=== PATIENT | male | born 1995 | race Caucasian/White ===

== ENCOUNTER 2018-12-17 01:56 | Emergency (ER) | payer MEDICAID ==
[~2018-12-17] VITALS: Ht 188 cm; Wt 71.7 kg
[2018-12-17 02:04] VITALS: Ht 188 cm; Wt 71.7 kg
[2018-12-17 04:52] VITALS: BP 141/76
== END 2018-12-17 04:52 | disposition home or self-care (01) ==
LOC: ED 01:56
DX: S61.512A Laceration without foreign body of left wrist, initial encounter (principal); S93.401A Sprain of unspecified ligament of right ankle, initial encounter; S80.12XA Contusion of left lower leg, initial encounter; S20.311A Abrasion of right front wall of thorax, initial encounter; V43.52XA Car driver injured in collision with other type car in traffic accident, initial encounter; Y93.I9 Activity, other involving external motion; Y92.488 Other paved roadways as the place of occurrence of the external cause; Y99.8 Other external cause status
CPT/HCPCS: 90715; J1885; J2001

== ENCOUNTER 2018-12-26 17:11 | Emergency (ER) | payer MEDICAID ==
[~2018-12-26] VITALS: Ht 188 cm; Wt 71.2 kg
[2018-12-26 17:19] VITALS: Ht 188 cm; Wt 71.2 kg
[2018-12-26 21:42] VITALS: BP 126/68
== END 2018-12-26 21:42 | disposition home or self-care (01) ==
LOC: ED 17:11
DX: M25.571 Pain in right ankle and joints of right foot (principal); R03.0 Elevated blood-pressure reading, without diagnosis of hypertension